=== PATIENT | male | born 1975 | race Caucasian/White ===

== ENCOUNTER 2018-04-08 20:07 | Emergency (ER) | payer SELFPAY ==
[~2018-04-08] VITALS: Ht 175.3 cm; Wt 90.0 kg
[2018-04-08 20:12] VITALS: Ht 175.3 cm; Wt 90.0 kg
[2018-04-08] MEDS ORDERED: CIPRO500 MG PO (20:13)
[2018-04-08] MEDS ORDERED: ADDERALL 5 MG TA5 M1 (20:13)
[2018-04-08] MEDS ORDERED: PROCTOFOAM-HC F10 G1 (20:13)
[2018-04-08] MEDS ORDERED: AXIRON30 MG/1.5 (20:13)
[2018-04-08 20:50] LABS: APPEARANCE CLEAR (CLEAR); BILIRUBIN NEGATIVE (NEGATIVE); COLOR YELLOW (YELLOW); GLUCOSE 100 mg/dL (NEGATIVE); KETONE NEGATIVE (NEGATIVE); NITRITE POSITIVE (NEGATIVE); PROTEIN NEGATIVE (NEGATIVE); SPECIFIC GRAVITY 1.015 (1.005-1.020); UROBILINOGEN NORMAL (NORMAL); WHITE CELLS - URINE 0-5 /hpf (0-5)
[2018-04-08 20:51] LABS: RED CELLS - URINE RARE /hpf (0-5)
[2018-04-08 21:30] LABS: BASOPHILS 0.4 % (0-2); EOSINOPHILS 2.2 % (0-7); HEMATOCRIT 48.8 % (42.0-54.0); HEMOGLOBIN 17.2 g/dL (13.5-17.5); IMMATURE GRANULOCYTES 0.4 % (0-5); LYMPHOCYTES 22.8 % (15-50); MCH 34.4 pg (26.0-34.0); MCHC 35.2 g/dL (31.0-37.0); MCV 97.6 fL (80.0-100.0); MEAN PLATELET VOLUME 10.5 fL (7.4-10.4); MONOCYTES 7.5 % (2-11); NEUTROPHILS 66.7 % (40-80); PLATELET COUNT 193 10x3/uL (130-400); RDW 12.2 % (11.5-14.5); WBC 10.5 10x3/uL (4.8-10.8)
[2018-04-08 21:53] LABS: ALBUMIN 3.5 g/dL (3.4-5.0); ANION GAP 12.6 mmol/L (8-16); BILIRUBIN - TOTAL 0.28 mg/dL (0.2-1.3); CARBON DIOXIDE 28.5 mmol/L (21.0-32.0); CREATININE - SERUM 1.2 mg/dL (0.6-1.3); POTASSIUM - SERUM 4.1 mmol/L (3.5-5.1)
[2018-04-08] MEDS ORDERED: VIBRAMYCIN 100100 MG PO (22:45)
[2018-04-08] MEDS ORDERED: PERCOCET 5-3251 TAB PO (22:46)
[2018-04-08 23:10] VITALS: BP 143/90
[2018-04-10 21:08] LABS: CHLAMYDIA TRACHOMATIS, NAA Positive (Negative)
== END 2018-04-08 23:10 | disposition home or self-care (01) ==
LOC: D.ER 20:07
PROVIDERS: Emergency Medicine
DX: N50.811 Right testicular pain (principal); N45.3 Epididymo-orchitis; F17.200 Nicotine dependence, unspecified, uncomplicated